=== PATIENT | female | born 1945 ===

== ENCOUNTER 2016-08-10 08:14 | Inpatient (IN) | payer MEDICARE, OTHER ==
[2016-08-10] VITALS (10 sets, daily range): BP systolic 81–132; BP diastolic 49–71; PULSE 97–135; RESP 22–24; O2SAT 93–99
[~2016-08-10] VITALS: Ht 154.9 cm; Wt 79.6 kg
[~2016-08-10 08:14] MED LIST: ANAS1TAB7 PO; ASPI325T32 PO; GABA-500 PO; INSU100I SUBQ; INSU100I13 SUBQ; LISI-567 PO; LOVA20TA PO; METF500T4 PO
--- NOTE | 2016-08-10 08:18 | ED.REPORT ---
HPI-General Illness Date of Service Aug 10, 2016 ED Provider: The patient is a 71 year old female with history of a stroke 5 years ago, diabetes mellitus, acute renal failure, osteopenia, UTIs, breast cancer, GERD, and hypertension, who was brought to the emergency department by EMS for a fever. The patient has had cold-like symptoms over the last few weeks. Today she has noticed abdominal pain, nausea, vomiting, and a fever. She has not been eating and drinking normally over the last few days. She has not had a bowel movement in about 3-4 days. She has not had similar symptoms in the past. She denies dysuria, hematuria, bloody stools or bloody emesis. Nursing Notes Stated Complaint: FEVER Nursing Notes Reviewed: Yes Allergies: Coded Allergies: cyclobenzaprine (Verified Allergy, Unknown, chest pain, hives, 08/10/16) naproxen (Verified Allergy, Unknown, chest pain, hives, 08/10/16) sulfamethoxazole (Verified Allergy, Unknown, nausea, vomiting, 08/10/16) trimethoprim (Verified Allergy, Unknown, nausea, vomiting, 08/10/16) Scheduled Anastrozole (Anastrozole) 1 Mg Tablet 1 MG PO DAILY Aspirin (Aspirin) 325 Mg Tablet.dr 325 MG PO DAILY Gabapentin (Gabapentin) 100 Mg Capsule 300 MG PO BID Insulin Aspart (NovoLOG U-100 Pen) 100 Unit/Ml Insuln.pen 30 UNIT SUBQ DAILY USE ACCORDING TO SLIDING SCALE Insulin Glargine (Lantus U100 Solostar Insulin Pen) 100 Unit/1 Ml Insuln.pen 45 UNIT SUBQ BID use according to insulin protochol Lisinopril (Lisinopril) 20 Mg Tablet 20 MG PO AM Lovastatin (Lovastatin) 20 Mg Tablet 20 MG PO DAILYWD Metformin (Metformin) 500 Mg Tablet 500 MG PO BID General Time Seen by MD: 08:24 Chief Complaint Fever Hx Obtained From: Patient, Spouse, EMS Arrived By: Ambulance Sudden in Onset?: No Onset Occurred: More than a week ago... Symptom Duration: Since onset Severity: Current: Moderate Severity: Maximum: Moderate Recent Healthcare: No recent hospitalization Similar Sx Previous: No Past Medical History Past Medical History Stroke Hypertension Diabetes mellitus Breast cancer Hx of sepsis with acute renal failure Osteopenia GERD Hx of UTIs Past Surgical History Family History Noncontributory Smoking History Unknown if Ever Smoker Social History Other Social History: Good social support, Ambulatory Status Independent Review of Systems Full Review of Systems Constitutional: Reports: Chills, Fever Ears / Nose / Throat: Reports: Nasal congestion Respiratory: Reports: Non-productive cough GI: Reports: Abdominal pain, Anorexia, Constipation, Nausea, Vomiting, Denies: Bloody/tarry stool, Hematemesis, Hematochezia Female: Denies: Dysuria, Hematuria Complete sys rev & neg: except as marked. Physical Exam Vital Signs Vital Signs Date Time Temp Pulse Resp B/P Pulse Ox O2 Delivery O2 Flow Rate FiO2 08/10/16 10:39 109 23 90/49 95 Nasal Cannula 2 08/10/16 09:00 38.8 08/10/16 08:30 39.6 135 24 81/54 97 Room Air Initial VS: Reviewed, Vital signs abnormal Head / Eyes: Atraumatic, Normocephalic, PERRL ENT: Mucous membranes moist, Conjunctiva normal, No scleral icterus Neck: Supple, Non-tender, Full range of motion Lymphatic: No lymphadenopathy Extremities: Vascular intact, Neuro intact, No swelling, No tenderness Skin: Warm, Dry, No cyanosis Neurologic: Alert, Oriented, Nonfocal Psychiatric: Mood/affect normal, Behavior normal, Normal thought content General/Constitutional: Awake, Alert, Cooperative Smells of urine Respiratory / Chest: Atraumatic, Breath sounds NL, No respiratory distress, No rales, No rhonchi, No wheezing Cardiovascular: Regular rhythm, Heart sounds NL, No murmurs, No rubs Heart Rate / Rhythm: Positive: Tachycardia Abdomen: Soft, No guarding, No rebound, BS normoactive, No distention, No hernia, No palpable mass, No pulsatile mass Lower abdominal tenderness Interpretation & Diagnostics Lab Results Interpretation Result Diagram: 08/10/16 0825 08/10/16 0825 Test 08/10/16 08:25 08/10/16 10:10 08/10/16 11:00 White Blood Count 2.5th/mm3 (3.8-10.1) Red Blood Count 4.34mil/mm3 (3.90-5.20) Hemoglobin 12.7g/dL (12.0-15.6) Hematocrit 38.4% (35.0-46.0) Mean Corpuscular Volume 88.5fL (81-100) Mean Corpuscular Hemoglobin 29.3pg (27.0-35.0) Mean Corpuscular Hemoglobin Concent 33.1% (32.0-37.0) Red Cell Distribution Width 13.1% (12.3-15.4) Platelet Count 269bil/L (150-400) Neutrophils (%) (Auto) 86.8% (40-74) Lymphocytes (%) (Auto) 11.6% (14-46) Monocytes (%) (Auto) 0.8% (4-12) Eosinophils (%) (Auto) 0.8% (0-5) Basophils (%) (Auto) 0% (0-3) Sodium Level 133mEq/L (134-144) Potassium Level 4.2mEq/L (3.5-5.2) Chloride Level 94mEq/L (97-108) Carbon Dioxide Level 19mmol/L (18-29) Blood Urea Nitrogen 22mg/dL (8-27) Creatinine 1.51mg/dL (0.57-1.00) Estimat Glomerular Filtration Rate 49mL/min (>59) Glucose Level 107mg/dL (60-99) Calcium Level 8.9mg/dL (8.5-10.1) Magnesium Level 1.4mg/dL (1.6-2.6) Total Bilirubin 1.4mg/dL (0.0-1.2) Aspartate Amino Transf (AST/SGOT) 23U/L (0-50) Alanine Aminotransferase (ALT/SGPT) 24U/L (0-32) Alkaline Phosphatase 106U/L (25-165) Troponin T < 0.010ug/L (0.0-0.011) Total Protein 7.7g/dL (6.4-8.4) Albumin 3.7g/dL (3.4-5.0) Lipase 22U/L (13-60) Procalcitonin 0.70ng/mL (0.00-0.08) Urine Color Straw (YELLOW) Urine Appearance Hazy (CLEAR,HAZY) Urine pH 5.5 (5.0-8.0) Urine Specific [place] 1.010 (1.003-1.035) Urine Protein Tracemg/dL (NEG,TRACE) Urine Glucose (UA) Negativemg/dL (NEGATIVE) Urine Ketones Negativemg/dL (NEGATIVE) Urine Occult Blood Small (NEGATIVE) Urine Nitrite Negative (NEGATIVE) Urine Bilirubin Negative (NEGATIVE) Urine Urobilinogen Normalmg/dL (NORMAL) Urine Leukocyte Esterase Moderate (NEGATIVE) Urine RBC 0-2/hpf (0-2) Urine WBC >50/hpf (0-5) Urine Epithelial Cells Few/hpf (NONE-MOD) Urine Crystals None seen (NONE SEEN) Urine Bacteria Moderate/hpf (NONE-FEW) Urine Hyaline Casts None/lpf (NONE) Urine Granular Casts None seen (NONE SEEN) Urine Waxy Casts None seen (NONE SEEN) Urine Red Blood Cell Casts None seen (NONE SEEN) Urine White Blood Cell Casts None seen (NONE SEEN) Urine Mucus None seen (None Seen) Urine Trichomonas None seen (NONE SEEN) Urine Yeast None (NONE SEEN) Urinalysis Comment None Urine Culture Reflexed Indicated Lactic Acid Level 1.3mmol/L (0.4-2.0) ECG Interpretation ECG Interpretation: Sinus tachycardia with a rate of 117 Time: 08:42 Interpreted by: ED physician X-Ray Chest Interpretation Chest Xray Interpretation: IMPRESSION: No acute cardiopulmonary disease process. Dictated by: Jillian Farmer MD, PhD on 08/10/2016 at 8:56 Interpretation / Wet Read by: Interpret - Radiologist CT Abd / Pelvis Interpretation IMPRESSION: 1. Findings suggestive of urinary tract infection, as evidenced by bilateral perinephric fat stranding, mild hydronephrosis and ureteral dilatation. Recommend correlation with urinalysis. 2. Appendix not seen. No evidence of appendicitis. Dictated by: En Maza M.D. on 08/10/2016 at 10: Interpretation / Wet Read by: Interpret - Radiologist Re-Eval/Medical Decision Med Decision/Clinical Course Ultimately, this is urosepsis, with septic shock, hypotension despite a greater than 30 mL/kg fluid bolus. IV norepinephrine is initiated. IV Zosyn given for urinary source of sepsis. Source of Hx: Old records, EMS, Family Time of Eval: 09:00 Re-Evaluation/Progress Note: Blood pressure is 105 systolic. Time of Eval: 09:37 Re-Evaluation/Progress Note: The patient is starting to feel better. Discussed plan for admission with the patient and family members. They understand and agree with plan. Time of Eval: 10:25 Re-Evaluation/Progress Note: Discussed CT results and plan for additional IV fluid. Consultation : Referral / Consult Name: Brando Rodriguez MD Consulted With: Hospitalist Requested Call at: 10:19 Call Returned at: 10:33 Household Cook: Will see patient, Agrees with eval, Agrees with plan, Accepts admit Counseled Regarding: Diagnosis, Lab results, Need for admission Discharge & Departure Primary Impression: Sepsis Sepsis type: sepsis due to unspecified organism Qualified Code: A41.9 - Sepsis, unspecified organism Additional Impressions: UTI (urinary tract infection) Urinary tract infection type: site unspecified Hematuria presence: without hematuria Qualified Code: N39.0 - Urinary tract infection, site not specified Shock Disposition: ADMITTED TO HOSPITAL Discharge Condition All VS Reviewed: Yes Condition: Stable Referrals: Larisa Arrieta MD (PCP) Crit Care Except Billable Proc Time Spent: 30-74 minutes Services Performed: Patient management by me, Time spent at bedside, Reviewing test results, Reviewing imaging, Discussing patient care, Documentation in record, Time with fam/surrogate Critical Care Notes: See MDM, IV vasopressors, septic shock Scribe Attestation Portions of this note were transcribed by Denise Ramirez. I, Dr. Hickey personally performed the history, physical exam and medical decision-making; I reviewed and confirmed the accuracy of the information in the transcribed note. Signed by: Natividad Weber, 08/10/2016 and 1040. copies to: Larisa Arrieta MD, Timothy S DO Aug 10, 2016 08:17 Denise Ramirez Aug 10, 2016 08:31
[2016-08-10] MEDS ORDERED: 0.9% Sodium Chloride 1,000 ML IV ONE (08:27)
[2016-08-10 08:38] LABS: BASOPHILS % (AUTO) 0 % (0-3); EOSINOPHILS % (AUTO) 0.8 % (0-5); MONOCYTES % (AUTO) 0.8 % (4-12); Mean Corpuscular Hemoglobin 29.3 pg (27.0-35.0); Mean Corpuscular Volume 88.5 fL (81-100); NEUTROPHILS % (AUTO) 86.8 % (40-74); Platelet Count 269 bil/L (150-400)
[2016-08-10] MEDS: 0.9% Sodium Chloride 1,000 ML IV SCH ×4 (08:45→11:28)
--- NOTE | 2016-08-10 08:59 | DRSVH ---
PROCEDURE: X-RAY CHEST ONE VIEW, PORTABLE ([id number]) INDICATIONS: fever, vomiting, recent URI TECHNIQUE: One view of the chest was acquired. COMPARISON: [facility], , CHEST 1VW (PORTABLE), 04/14/2010, 5:48. FINDINGS: Surgical changes and devices: None. Lungs and pleura: No pleural effusions or pneumothorax. Lungs are clear. Mediastinum: Mediastinal contours appear normal. Heart size is normal. Bones and chest wall: No suspicious bony lesions. Overlying soft tissues appear unremarkable. IMPRESSION: No acute cardiopulmonary disease process. Dictated by: Jillian Farmer MD, PhD on 08/10/2016 at 8:56 Approved by: Jillian Farmer MD, PhD on 08/10/2016 at 8:57
[2016-08-10] MEDS: Ondansetron 2 mg/mL 2 mL Inj IVPUSH PRN ×2 (09:09→23:04)
[2016-08-10 09:10] LABS: Lipase 22 U/L (13-60); Magnesium 1.4 mg/dL (1.6-2.6)
[2016-08-10 09:13] LABS: TROPONIN T < 0.010 ug/L (0.0-0.011)
[2016-08-10] MEDS ORDERED: Magnesium Sulf 2 Gm/50mL Water 2 GM in IV Premix 1 EACH IV ONE (09:20)
[2016-08-10] MEDS: fentaNYL-PF 50 mCg/mL 2 mL Inj IVPUSH PRN ×3 (09:54→13:14)
--- NOTE | 2016-08-10 10:12 | DRSVH ---
PROCEDURE: CT ABDOMEN AND PELVIS WITH CONTRAST ([id number]) INDICATIONS: abd pain, fever, sepsis TECHNIQUE: After the administration of intravenous contrast, 5 mm thick sections acquired from the diaphragm to the symphysis. 5 mm coronal and sagittal reformats were acquired. For radiation dose reduction, the following was used: automated exposure control, adjustment of mA and/or kV according to patient siz e. COMPARISON: None. FINDINGS: Image quality: Excellent. ABDOMEN: Lung bases: Lung bases are clear. Heart size is normal. Solid organs: Liver and spleen are normal in size and enhancement. Gallbladder is within normal bearden its. Biliary system is non dilated. Pancreas enhances normally. No adrenal nodules. Kidneys demon strate normal size and enhancement. There is mild perinephric fat stranding on the right, and moderat e stranding on the left. There is mild bilateral hydronephrosis and bilateral ureteral dilatation. Peritoneum and bowel: Bowel loops demonstrate normal wall thickness and caliber. No free fluid or a ir. Appendix is not seen. No evidence of appendicitis. Nodes and vessels: No retroperitoneal or mesenteric adenopathy by size criteria. Aorta and inferior vena cava are normal in size. Miscellaneous: No ventral hernias. PELVIS: Genitourinary: Bladder wall thickness is normal. There is a 14 mm diameter calcific focus within th e right posterior uterine fundus, suggestive of a fibroid. Miscellaneous: No inguinal hernias or adenopathy. Bones: No suspicious bony lesions. No vertebral body compression fractures. IMPRESSION: 1. Findings suggestive of urinary tract infection, as evidenced by bilateral perinephric fat strandin g, mild hydronephrosis and ureteral dilatation. Recommend correlation with urinalysis. 2. Appendix not seen. No evidence of appendicitis. Dictated by: En Maza M.D. on 08/10/2016 at 10:07 Approved by: En Maza M.D. on 08/10/2016 at 10:10
[2016-08-10] MEDS ORDERED: Piperacillin-Tazo 3.375 Gm Inj 3.375 GM in Dextrose 5% Minibag Plus 50 ML IV ONE (10:15)
[2016-08-10 10:20] LABS: APPEARANCE,URINE HAZY (CLEAR,HAZY); COLOR,URINE STRAW (YELLOW); OCCULT BLOOD,URINE SMALL (NEGATIVE); PH,URINE 5.5 (5.0-8.0); UROBILINOGEN,URINE NORMAL (NORMAL)
[2016-08-10] MEDS ORDERED: 0.9% Sodium Chloride 1,000 ML IV SCH ×3 (10:30→13:32)
[2016-08-10] MEDS ORDERED: Sodium Chloride LOK Flush 10 mL Syringe IVFLUSH PRN ×2 (10:30)
[2016-08-10] MEDS ORDERED: Norepineph 8,000 mCg/250 mL NS 8,000 MCG in IV Premix 1 EACH IV SCH (10:35)
[2016-08-10] MEDS ORDERED: Alum-Mag Hydrox-Simeth 30 mL Suspension PO PRN (12:30)
--- NOTE | 2016-08-10 12:37 | DRSVH ---
PROCEDURE: X-RAY PICC LINE PLACEMENT BY NURSE ([id number]) INDICATIONS: shock COMPARISON: None. FINDINGS: FINDINGS: PICC was placed by the intravenous therapy team from the left side. Fluoroscop ic spot film demonstrates tip projected over the cavoatrial junction. IMPRESSION: Tip of PICC projected over the cavoatrial junction. Dictated by: Mariano MCNEAL Interpreted: Souleymane Irby MD on 08/10/2016 at 12:35 Transcribed by: PASCUAL on 08/10/2016 at 12:36 Approved by: Souleymane Irby M.D. on 08/10/2016 at 14:52
[2016-08-10] MEDS ORDERED: Norepineph 8,000 mCg/250 mL NS 8,000 MCG in IV Premix 1 EACH IV PRN (13:32)
[2016-08-10] MEDS ORDERED: Lactated Ringer's 1,000 ML IV PRN (13:32)
--- NOTE | 2016-08-10 13:46 | PCM.HPMED ---
Subjective Date of Service Aug 10, 2016 Primary Provider: Admitting Physician: Brando Rodriguez MD Primary Care Physician: Larisa Arrieta MD Attending Physician: Brando Rodriguez MD Admit Status: From the Emergency Department, Full Admit, Admit to Yellow Team, Critical Care Chief Complaint: Fevers chills or weakness History of Present Illness: This is a 71-year-old female with history of diabetes mellitus 2 and recurrent UTI. She presents having been ill for 5 days with polyuria and increased thirst and generalized progressive weakness. She has not had a bowel movement for 5 days. Her urine has been a little bit uncomfortable while urinating and more urgent. No flank pain. This morning she became more weak and had fevers and chills. She is brought to the ER and found to be profoundly hypotensive and initially did respond to about 3 L of saline but then had recurrent hypotension consistent with moderate to severe sepsis. She was given 6 L of crystalloid in the ED and started on norepinephrine. A PICC was placed. She denies nausea vomiting or chest pain. No recent diarrhea or blood per rectum. She does have some suprapubic tenderness. Review of Systems: No recent hearing loss visual changes rhinorrhea sore throat or cough. No dyspnea at rest or with exertion orthopnea or pedal edema. No skin rash or lesions. She denies any vomiting. Also reviewed and otherwise negative except as noted in history of present illness Allergies Coded Allergies: cyclobenzaprine (Verified Allergy, Unknown, chest pain, hives, 08/10/16) naproxen (Verified Allergy, Unknown, chest pain, hives, 08/10/16) sulfamethoxazole (Verified Allergy, Unknown, nausea, vomiting, 08/10/16) trimethoprim (Verified Allergy, Unknown, nausea, vomiting, 08/10/16) Home Medications Anastrozole (Anastrozole) 1 Mg Tablet 1 MG PO DAILY Aspirin (Aspirin) 325 Mg Tablet.dr 325 MG PO DAILY Gabapentin (Gabapentin) 100 Mg Capsule 300 MG PO BID Insulin Aspart (NovoLOG U-100 Pen) 100 Unit/Ml Insuln.pen 30 UNIT SUBQ DAILY USE ACCORDING TO SLIDING SCALE Insulin Glargine (Lantus U100 Solostar Insulin Pen) 100 Unit/1 Ml Insuln.pen 45 UNIT SUBQ BID use according to insulin protochol Lisinopril (Lisinopril) 20 Mg Tablet 20 MG PO AM Lovastatin (Lovastatin) 20 Mg Tablet 20 MG PO DAILYWD Metformin (Metformin) 500 Mg Tablet 500 MG PO BID PMH 1. Diabetes mellitus 2, insulin-dependent 2. History of remote CVA 3. Essential hypertension 4. Breast cancer with history of lumpectomy and chemotherapy 5. Recurrent urinary tract infection 6. GERD Surgical History Lumpectomy for breast cancer risk section Family History Positive for diabetes Social History Occupation: none Hx Alcohol Use: No Hx Substance Use: No Hx Tobacco Use: Yes (stopped 25 years ago) Smoking Status: Unknown if Ever Smoker Living Arrangement: with Family Exam Vital Signs Vital Sign - Last Date Time Temp Pulse Resp B/P Pulse Ox O2 Delivery O2 Flow Rate FiO2 08/10/16 12:50 109 23 96/54 94 Nasal Cannula 2 08/10/16 09:00 38.8 Exam Alert oriented 3, no distress. In speech. No facial droop. Normal skull. Normal nose and ears. An exquisite icteric sclerae, symmetric pupils Oropharynx dry mucosa normal tongue. Neck supple, normal thyroid. No adenopathy are clear, normal effort and rate. Heart is regular without murmur gallop or rub Abdomen is soft nondistended organomegaly no focal tenderness. Extremities are free of edema. Pedal and radial pulses Muscles is normal tone. Joints not swollen or deformed. Skin free of rash, lesions or ecchymosis. She has grossly normal cranial nerves. Affect is normal. Lab and Diagnostics Labs Urine dip is positive for leukocytes and bacteria Result Diagram: 08/10/1625 08/10/16 0825 X-Rays, CTs and MRIs Chest x-ray is unremarkable CT of abdomen reveals bilateral devin-renal fact stranding consistent with probable pyelonephritis. Mild bilateral hydronephrosis. Assessment & Plan 1. Septic shock. POA. Patient is admitted on the sepsis order set. We will trend her lactic acid, continue empiric IV antibiotics with Zosyn for pyelonephritis as expected source. Blood cultures drawn and pending. She is started on norepinephrine will continue titrated titrate this to a map of over 65. 2. Pyelonephritis, POA. Measures as outlined above, specifically Zosyn. 3. DM 2. We will continue her Lantus at a slightly reduced dose of 30 every 12 hours. 4. Essential hypertension, POA. We will hold antihypertensives that she is currently in shock 5. AK I, POA. Fluid resuscitation and follow renal indices Patient is a full resuscitation this is confirmed today. Her estimated length of stay is over tonight she is inpatient status. Pain Evaluation: Adequate Pain Control Resuscitation Status: CPR: Attempt Resuscitation Time spent 45 minutes Brando Rodriguez MD Aug 10, 2016 13:46
[2016-08-10] MEDS ORDERED: Glucose 40% Oral Gel 15 Gm Tube PO PRN (13:50)
[2016-08-10 13:58] LABS: Phosphorus 3.5 mg/dL (2.5-4.9)
[2016-08-10] MEDS: Lactated Ringer's 1,000 ML IV SCH ×2 (14:10→20:12)
--- NOTE | 2016-08-10 15:52 | ABG ---
DateTimeAnalyzed 15:47:00 -_ pH ____7.329 - 7.350 7.450 pCO2 ___30.5__ -mmHg 35.0 45.0 pO2 ___43.8__ -mmHg 69.0 116 HCO3- ___15.6__ -mmol/L ABE ___-9.0__ -mmol/L tHb ____9.1__ -g/dL O2Hb ___76.7__ -% COHb ____1.0__ -% MetHb ____1.1__ -% sO2 ___78.3__ -% FIO2 ___28.0__ -% Drawn By NB - Date/Time Notified____ 15:51:00 -_ Liter_Flow ____3.0__ -L/min Oxygen Device 1 __CANNULA - Notified By NB - Notified Whom _Sara, RN - Age 64 -years B 764 -mmHg tO2 ____9.8__ -Vol% Brando test N/A -
[2016-08-10] MEDS: Heparin 5,000 Unit/mL Inj SUBQ SCH (16:30)
[2016-08-10] MEDS: Piperacillin-Tazo 3.375 Gm Inj 3.375 GM in Dextrose 5% Minibag Plus 50 ML IV SCH (16:30)
--- NOTE | 2016-08-10 16:44 | DRSVH ---
[facility] [address] [place] [address] Echocardiogram Report Name: KOFFI NEWMAN Study Date: 08/10/2016 Height: 61 in Hospital Exam Location: [facility] Weight: 175 lb Gender: Female BSA: 1.8 m2 : 1945 Age: 71 yrs BP: 123/65 mmHg Reason For Study: SEPSIS, EVAL RV/LV FX, VALVES, CHAMBERS Ordering Physician: HOSPITALIST SASHAerformed By: Everett Keller Referring Physician: ETHAN FAN Interpretation Summary The left ventricle is normal in size, wall thickness, and systolic function without any focal wall motion abnormalities. The ejection fraction is estimated to be 60-65%. Assessment of diastolic parameters indicates a relaxation abnormality of the left ventricle, consistent with normal filling pressures. The right ventricle is normal in size, thickness and function. The right ventricular systolic pressure is estimated at 48 mmHg assuming a right atrial pressure of 15 mm Hg. The left atrial size is normal. Right atrial size is normal. There is no significant valvular heart disease. There are no obvious findings that would suggest endocarditis. If highly suspicious for endocarditis then consider TOM. The aortic root is normal size. Procedure: A two-dimensional transthoracic echocardiogram with color flow and Doppler was performed. The study quality was technically adequate. There is no prior echocardiogram noted for this patient. The patient was in sinus tachycardia with heart rates between 107-111 bpm during the exam. Left Ventricle: The left ventricle is normal in size, wall thickness, and systolic function without any focal wall motion abnormalities. The ejection fraction is estimated to be 60-65%. Assessment of diastolic parameters indicates a relaxation abnormality of the left ventricle, consistent with normal filling pressures. Right Ventricle: The right ventricle is normal in size, thickness and function. Atria: The left atrial size is normal. Right atrial size is normal. The interatrial septum is intact with no evidence for an atrial septal defect. Mitral Valve: The mitral valve is normal. There is trace mitral regurgitation. Aortic Valve: The aortic valve is trileaflet. The aortic valve is slightly calcified. No aortic regurgitation is present. Tricuspid Valve: The tricuspid valve is normal. There is mild tricuspid regurgitation. The right ventricular systolic pressure is estimated at 48 mmHg assuming a right atrial pressure of 15 mm Hg. Pulmonic Valve: The pulmonic valve is not well seen, but is grossly normal. There is a trace or physiologic amount of pulmonic regurgitation. There is no significant valvular heart disease. Great Vessels: The aortic root is normal size. The dimensions of the ascending aorta are normal. The pulmonary artery is normal size. The IVC is dilated (diameter is greater than 2.1 cm) and it collapses less than 50% with a sniff. This suggests a high right atrial pressure of 15 mm Hg. Pericardium/ Pleura There is no pericardial effusion. There is no pleural effusion. MMode/2D Measurements & Calculations LVIDd: 4.4 cm RA long axis LVOT diam: 1.8 cm LVIDs: 3.1 cm LA A2 area: 14.4 cm AoV Opening FS: 28.8 % LA A4 area: 20.4 cm RA area EPSS: 0.33 cm LA length (vol) Ao root diam IVSd: 0.87 cm : 14.1 cm LVPWd: 0.80 cm LA vol: 48.0 ml RA vol asc Aorta Diam LA vol index : 32.5 ml RA Ao Arch Diam (Prox : 18.2 mm2 Trans): 2.1 cm IVC diam: 2.4 cm LV okeefe. diameter/BSA LV sys. diameter/BSA TAPSE: 1.9 cm (cm/m^2): 2.4 (cm/m^2): 1.7 Doppler Measurements & Calculations Ao V2 max MV E max evan MV E/A: 0.99 TR max evan : 147.4 cm/sec : 109.3 cm/sec Med Peak E' Evan : 285.8 cm/sec Ao max P.7 mmHg MV A max evan TR max PG Ao mean P.2 mmHg : 110.3 cm/sec E/E' med: 14.4 : 32.7 mmHg LVOT Max Evan Lat Peak E' Evan PA V2 max : 103.6 cm/sec : 99.1 cm/sec E/E' lat: 15.5 PA mean PG LUC(I,D): 2.0 cm E/e' average : 2.1 mmHg sev ratio: 0.78 MV dec time: 0.21 sec Ao V2 mean LV V1 max PG PA V2 mean : 109.6 cm/sec : 68.7 cm/sec Ao V2 VTI: 25.8 cmLV V1 VTI PA pr(Accel) : 20.1 cm : 38.5 mmHg LUC(V,D): 1.8 cm2 LUC indexed to BSA (cm^2/m^2): 1.1 Reading Physician:PM
[2016-08-10] MEDS: Insulin LISPRO 300 Unit/3 mL Inj SUBQ SCH ×2 (17:30→22:00)
--- NOTE | 2016-08-10 19:15 | NUR ---
Admit note Pt arrived in CCU at 1305 from ED. A&O x3, on norepi and NS at 200ml. MD at bedside assessing pt and putting in orders. Pt on 3L NC sats in 90s, HR ST, afebrile. Family at bedside. Pt c/o 8/10 abd pain, good relief with 2mg IV morphine. Frequent rounding, ice chips continue.
[2016-08-10] MEDS: Famotidine Inj 20 MG in IV Premix 1 EACH IV SCH (20:13)
[2016-08-10] MEDS: Insulin GLARgine 100 Unit/mL Syringe SUBQ SCH (22:00)
[2016-08-11] VITALS (7 sets, daily range): BP systolic 108–122; BP diastolic 52–58; PULSE 70–86; RESP 16–20; O2SAT 99–100
[2016-08-11] MEDS: Piperacillin-Tazo 3.375 Gm Inj 3.375 GM in Dextrose 5% Minibag Plus 50 ML IV SCH ×3 (00:42→16:53)
[2016-08-11] MEDS: Heparin 5,000 Unit/mL Inj SUBQ SCH ×3 (00:43→16:53)
[2016-08-11 04:25] LABS: BASOPHILS % (AUTO) 0.1 % (0-3); EOSINOPHILS % (AUTO) 0.3 % (0-5); MONOCYTES % (AUTO) 3.8 % (4-12); Mean Corpuscular Hemoglobin 29.5 pg (27.0-35.0); Mean Corpuscular Volume 89.4 fL (81-100); NEUTROPHILS % (AUTO) 89.1 % (40-74); Platelet Count 231 bil/L (150-400)
[2016-08-11 04:42] LABS: INR 1.16 ratio
[2016-08-11 05:07] LABS: Phosphorus 2.6 mg/dL (2.5-4.9)
[2016-08-11] MEDS: Lactated Ringer's 1,000 ML IV SCH ×4 (06:26→20:41)
[2016-08-11] MEDS: Ondansetron 2 mg/mL 2 mL Inj IVPUSH PRN ×3 (07:55→21:41)
[2016-08-11] MEDS: Famotidine Inj 20 MG in IV Premix 1 EACH IV SCH ×2 (07:55→20:58)
--- NOTE | 2016-08-11 07:59 | NUR ---
Pt A&O X 3 pleasant lady. Frequent complaints of pain in abd and occasional headache. Treated with morphine and tylenol with good resolve. Able to titrate down norepi from .08 down to .04 and BP remains stable. Family at bedside and other VSS. Good urine output and will continue to support and monitor.
[2016-08-11] MEDS: Insulin LISPRO 300 Unit/3 mL Inj SUBQ SCH ×4 (08:00→20:40)
[2016-08-11] MEDS: Insulin GLARgine 100 Unit/mL Syringe SUBQ SCH ×2 (08:00→22:00)
--- NOTE | 2016-08-11 14:22 | PCM.PNMED ---
Subjective Date of Service Aug 11, 2016 Subjective She is doing better today. She still feels somewhat thirsty. Some nausea. She denies any chest pain or abdominal pain. Other than some suprapubic tenderness. She denies any diarrhea. No cough or rhinorrhea. Exam Vital Signs Vital Sign - Last Date Time Temp Pulse Resp B/P Pulse Ox O2 Delivery O2 Flow Rate FiO2 08/11/16 12:30 37.5 73 16 108/58 99 Nasal Cannula 3.00 Intake and Output 08/10/16 08/10/16 08/11/16 Cumulative From/Thru 15:00 23:00 07:00 08/10/16 08:30 - 08/10/16 19:20 Intake Total 5000 ml 1099 ml 6099 ml Output Total 825 ml 1900 ml 2725 ml Balance 4175 ml -801 ml 3374 ml Intake IV Total 5000 ml 1099 ml 6099 ml Output Urine Total 825 ml 1900 ml 2725 ml Exam Alert and oriented 3, no distress. Speech Anicteric sclera Neck supple. Lungs are clear with normal rate and effort. Heart is regular without murmur gallop or rub. Soft Nondistended Extremities Are Free of Edema Good Pedal and Radial Pulses. IVs and Medications Medications Reviewed: Medications were reviewed in detail Lab and Diagnostics Result Diagram: 08/11/16 0400 08/11/16 0400 X-Rays, CTs and MRIs Chest x-ray is unremarkable CT of abdomen reveals bilateral devin-renal fact stranding consistent with probable pyelonephritis. Mild bilateral hydronephrosis. Assessment & Plan 1. Septic shock. POA. She is improving. She was extensively fluid resuscitated and is now weaning off the norepinephrine drip. Lactic acid did normalize. 2. Pyelonephritis, POA. Cultures are still pending and urine and blood. She is clinically improving on Zosyn. ID did point out that he has BL cane occasionally present with a more acute septic picture and refractory response to typical measures although she does seem to be improving. We will continue Zosyn and await cultures. 3. DM 2. We will continue her Lantus at a slightly reduced dose of 30 every 12 hours. 4. Essential hypertension, POA. We will hold antihypertensives that she is currently in shock 5. AK I, POA. Fluid resuscitation and follow renal indices, this is improving. Patient is a full resuscitation this is confirmed today. Her estimated length of stay is over tonight she is inpatient status. Pain Evaluation: Adequate Pain Control VTE Mechanical Devices: Intermittant Pneumatic CD Resuscitation Status: CPR: Attempt Resuscitation Time spent 30 minutes Brando Rodriguez MD Aug 11, 2016 14:22
--- NOTE | 2016-08-11 14:48 | NUR ---
NUTRITION ASSESSMENT Assess: 71 yo F w/ sepsis, UTI, pyelonephritis. Pt w/ out BM x5 days prior to admission. PMHx: DM 2, CVA, Breast cancer w/ lumpectomy, GERD, UTI LABS: Reviewed. Cr 1.01, Glu 133, Ca 7.1, Albumin 2.8 MEDICATIONS: Reviewed. Insulin, Zofran DIET: Consistent Carbohydrate GI symptoms/stool: No BM x5 days [employer] Skin integrity: No issues reported; Harvinder: 15 ANTHROPOMETRICS: Current Wt: 79.5 kg BMI: 33.1 kg/p0Hfelu Wt: 79.5 kg IBW: 47.7 kg Recent wt changes: Wt stable ESTIMATED NEEDS: Calories: 5613-0153 kcal/d (25-30 kcal/kg/d) Protein: 80-95 g/d (1-1.2 g/kg/d) Fluids: 7669-0468 ml/d (25-30 kcal/kg/d) NUTRITION DIAGNOSIS: 1) No nutrition diagnoses at this time INTERVENTION: 1) No intervention at this time MONITOR/EVALUATE: PO intake, Labs, Wt, GI, Nutrition status, POC. Will follow per moderate nutrition risk guidelines.
--- NOTE | 2016-08-11 17:44 | NUR ---
N/V&SAMANIEGO Pt transferred out of CCU to PCU room 2011. Alert and oriented x3. C/O headache with nausea and small amounts of bile emesis. Notified . 2mg Morphine IV given for SAMANIEGO and ABD pain. 4mg Zofran given for n/v. New order for Reglan if needed. x2 soft brown stool in bedpan. Flor draining elmo urine, 800cc output. Tolerating only ice chips. LR at 150cc/hr in left upper PICC.
[2016-08-11] MEDS: MetoCLOpramide 5 mg/mL 2 mL Inj IVPUSH PRN (18:20)
--- NOTE | 2016-08-11 23:05 | NUR ---
N/V Pt received dose of Reglan during end of day shift. At 2100, pt denied N/V. At 2200, put stated she was nauseas, dry heaving, and spitting up saliva. Pt given 8mg of Zofran IV. Pt has had about 50ml of sorbet and ice chips throughout day shift. Continue to monitor.
[2016-08-12] VITALS (9 sets, daily range): BP systolic 109–149; BP diastolic 53–78; PULSE 54–72; RESP 19–22; O2SAT 94–99
[2016-08-12] MEDS: Piperacillin-Tazo 3.375 Gm Inj 3.375 GM in Dextrose 5% Minibag Plus 50 ML IV SCH ×2 (01:03→10:49)
[2016-08-12] MEDS: Heparin 5,000 Unit/mL Inj SUBQ SCH ×3 (01:05→15:32)
[2016-08-12] MEDS: MetoCLOpramide 5 mg/mL 2 mL Inj IVPUSH PRN (04:57)
[2016-08-12] MEDS: Lactated Ringer's 1,000 ML IV SCH ×2 (05:32→10:48)
[2016-08-12] MEDS: Insulin LISPRO 300 Unit/3 mL Inj SUBQ SCH ×4 (08:00→21:04)
[2016-08-12] MEDS: Insulin GLARgine 100 Unit/mL Syringe SUBQ SCH ×3 (08:00→21:05)
--- NOTE | 2016-08-12 08:56 | PCM.PNMED ---
Subjective Date of Service Aug 12, 2016 Subjective She is feeling a little bit better today. She was nauseated last night. No nausea this morning no abdominal or flank pain. Minimal suprapubic pain. No chest pain or dyspnea. No diarrhea. Exam Vital Signs Vital Sign - Last Date Time Temp Pulse Resp B/P Pulse Ox O2 Delivery O2 Flow Rate FiO2 08/12/16 04:45 36.8 69 21 125/53 99 Nasal Cannula 2.00 Intake and Output 08/11/16 08/11/16 08/12/16 Cumulative From/Thru 15:00 23:00 07:00 08/10/16 08:30 - 08/12/16 06:47 Intake Total 2900 ml 100 ml 9099 ml Output Total 1200 ml 825 ml 4750 ml Balance 1700 ml -725 ml 4349 ml Intake Oral 100 ml 100 ml IV Total 2900 ml 8999 ml Output Urine Total 1200 ml 825 ml 4750 ml Exam They are oriented 3, fluent speech. Anicteric sclera Lungs are clear, normal effort. Heart is regular without murmur gallop or rub Abdomen is soft Extremities are free of edema good pedal pulses IVs and Medications Medications Reviewed: Medications were reviewed in detail Lab and Diagnostics Result Diagram: 08/11/16 0400 08/11/16 0400 X-Rays, CTs and MRIs Chest x-ray is unremarkable CT of abdomen reveals bilateral devin-renal fact stranding consistent with probable pyelonephritis. Mild bilateral hydronephrosis. Assessment & Plan 1. Septic shock. POA. Resolved. She is now off of norepinephrine. She is on saline at 100. 2. Pyelonephritis, POA. Cultures are negative, urine culture 100,000 CFU's GNR. Continue current antibiotics. 3. DM 2. We will continue her Lantus at a slightly reduced dose of 30 every 12 hours. 4. Essential hypertension, POA. We will resume blood pressure medications today if needed. 5. AK I, POA. Resolved. Patient is a full resuscitation this is confirmed today. Her estimated length of stay is over tonight she is inpatient status. We will see if she could not even walk today. We will decide in one to discharge her. Pain Evaluation: Adequate Pain Control VTE Mechanical Devices: Intermittant Pneumatic CD Resuscitation Status: CPR: Attempt Resuscitation Time spent 30 minutes Brando Rodriguez MD Aug 12, 2016 08:56
[2016-08-12] MEDS: Famotidine Inj 20 MG in IV Premix 1 EACH IV SCH ×2 (10:48→21:01)
[2016-08-12 11:11] LABS: Mean Corpuscular Hemoglobin 28.8 pg (27.0-35.0); Mean Corpuscular Volume 87.8 fL (81-100)
--- NOTE | 2016-08-12 13:33 | NUR ---
Social Work: Initial Assessment D: Per EMR review, pt is a 71 year old female admitted for sepsis, UTI. Pt is Medicare with Health Supplement; pt has no LTC insurance or VA benefits. PCP Is Dang Arrieta MD. NOK Is Brian Alva Jr. Spouse, . Advanced directives information provided by [employer]. Readmit score is low, 2/8. KIT PL[employer]NER met with pt at bedside. Sw role explained. See initial assessment. Pt lives at home with her spouse. She is I at baseline, continues to drive and uses no DME. Pt has never had HH or skilled rehab placements. Pt anticipates discharge back home with her family to transport. Family is very supportive. Pt discussed in am rounds. anticipates pt to discharge home with no needs pending safe demonstration of ambulation. Also advancing diet today. Anticipate discharge home on Monday. A: Pt who is I at baseline. P: Anticipate pt to discharge home via POV pending safe demonstration of ambulation with RN and PT today; [employer] to continue to follow to assess for needs. ANA Molina
--- NOTE | 2016-08-12 15:20 | NUR ---
Activity/food intake Patient was motivated to get up and increase her activity level- consulted with MD will order PT evaluation because of recent weakness and past history of CVA. Patient was helped to a sitting position at the bedside for meals and tolerated the activity well. MD discontinued IV fluids- patient was encouraged to take PO liquids. Patients eat about 10% of her lunch and stated that the food did not taste good to her. Family was present in the room ad was asked to bring soft food from home that the patient would prefer to eat within patients caloric count restrictions. Patient and the family members verbalized understanding of dietary restrictions.
[2016-08-12] MEDS: cefTRIAXone Inj 2,000 MG in Dextrose 5% Minibag Plus 50 ML IV SCH (15:32)
--- NOTE | 2016-08-12 17:50 | NUR ---
O2 off O2 per nasal canula was discontinued today at 1600 as discussed during PCC rounds- oxygen saturation remained 94-96%. Patient denied having any shortness of breath while resting or with turning. O2 remained off- continue assessment.
--- NOTE | 2016-08-12 23:58 | NUR ---
Desaturation Pt on RA at 96% without movement. During a bed bath, pt's SP02 dropped to 68. Pt given 3L of oxygen via nasal canula. Saturations increased to 98%. Pt asymptomatic.
[2016-08-13] MEDS: Heparin 5,000 Unit/mL Inj SUBQ SCH ×2 (01:51→08:33)
[2016-08-13 04:33] VITALS: BP 138/63; PULSE 62; RESP 18; O2SAT 98
[2016-08-13 05:36] VITALS: PULSE 62
[2016-08-13] MEDS: Insulin LISPRO 300 Unit/3 mL Inj SUBQ SCH (08:00)
[2016-08-13 08:16] VITALS: BP 156/74; PULSE 60; RESP 20; O2SAT 94
[2016-08-13] MEDS: Famotidine Inj 20 MG in IV Premix 1 EACH IV SCH (08:25)
[2016-08-13] MEDS: Insulin GLARgine 100 Unit/mL Syringe SUBQ SCH (08:31)
[2016-08-13 10:12] VITALS: PULSE 60
[2016-08-13] MEDS: cefTRIAXone Inj 2,000 MG in Dextrose 5% Minibag Plus 50 ML IV SCH (10:57)
[2016-08-13] MEDS ORDERED: CIPR-231 PO (11:12)
--- NOTE | 2016-08-13 11:14 | PCM.DIMED ---
Discharge Instructions Date of Service Aug 13, 2016 Dates of Hospitalization Aug 10, 2016 at 11:14 Discharge Diagnosis Discharge Diagnosis 1. Sepsis, resolved 2. Pyelonephritis, improved 3. Volume depletion, resolved 4. DM 2 5. JOSÉ MIGUEL, resolved Call your provider Fever or Chills Patient Instructions PCP in 1 week Follow-up with PCP in: 1 week Brando Rodriguez MD Aug 13, 2016 11:14
--- NOTE | 2016-08-13 11:41 | NUR ---
Evaluation completed/ready for discharge Please go to "Notes" then click on "Assessments and Notes" (bottom left corner of screen). Then select appropriate discipline tab on top of screen.
--- NOTE | 2016-08-13 11:51 | NUR ---
Discharge pt ordered for discharge, pt agreeable. discharge instructions and medication reviewed with patient. pt escorted out via wheelchair, and all belongings at about 1155
--- NOTE | 2016-08-13 12:03 | NUR ---
Social Work Note - Discharge SAFETY CONSULTANT met briefly with pt - pt's family also in the room. PT worked with pt and recommended home with no needs. Pt states she has good family support. She will follow up with PCP if she finds that she is getting weaker and wants outpt rehab. SAFETY CONSULTANT provided support - no needs identified. Plan: Home with family, no needs identified. JOSE Sosa
--- NOTE | 2016-08-15 16:06 | PCM.DC.MED ---
Discharge Summary Date of Service Aug 13, 2016 Dates of Hospitalization Date of Hospital Admission Aug 10, 2016 at 11:14 Date of Discharge: Aug 13, 2016 Providers: Admitting Physician: Brando Rodriguez MD Primary Care Physician: Larisa Arrieta MD Attending Physician: Brando Rodriguez MD Diagnosis at Time of Discharge Diagnosis at Time of Discharge 1. Sepsis, resolved 2. Pyelonephritis, improved 3. Volume depletion, resolved 4. DM 2 5. JOSÉ MIGUEL, resolved Consultations None Procedures XRay, CTs & MRIs Chest x-ray is unremarkable CT of abdomen reveals bilateral devin-renal fact stranding consistent with probable pyelonephritis. Mild bilateral hydronephrosis. Cardiac Echo Impression The left ventricle is normal in size, wall thickness, and systolic function without any focal wall motion abnormalities. The ejection fraction is estimated to be 60-65%. Assessment of diastolic parameters indicates a relaxation abnormality of the left ventricle, consistent with normal filling pressures. The right ventricle is normal in size, thickness and function. The right ventricular systolic pressure is estimated at 48 mmHg assuming a right atrial pressure of 15 mm Hg. The left atrial size is normal. Right atrial size is normal. Brief History This is a 71-year-old female with history of diabetes mellitus 2 and recurrent UTI. She presents having been ill for 5 days with polyuria and increased thirst and generalized progressive weakness. She has not had a bowel movement for 5 days. Her urine has been a little bit uncomfortable while urinating and more urgent. No flank pain. This morning she became more weak and had fevers and chills. She is brought to the ER and found to be profoundly hypotensive and initially did respond to about 3 L of saline but then had recurrent hypotension consistent with moderate to severe sepsis. She was given 6 L of crystalloid in the ED and started on norepinephrine. A PICC was placed. She denies nausea vomiting or chest pain. No recent diarrhea or blood per rectum. She does have some suprapubic tenderness. Hospital Course 1. Septic shock. POA. Resolved. She is now off of norepinephrine. She is on saline at 100. 2. Pyelonephritis, POA. Cultures are negative, urine culture 100,000 CFU's GNR. Continue current antibiotics. 3. DM 2. We will continue her Lantus at a slightly reduced dose of 30 every 12 hours. 4. Essential hypertension, POA. We will resume blood pressure medications today if needed. 5. AK I, POA. Resolved. Patient is a full resuscitation this is confirmed today. Her estimated length of stay is over tonight she is inpatient status. We will see if she could not even walk today. We will decide in one to discharge her. Hospital course. This patient is admitted with evidence of septic shock. She is several hypotensive. She required aggressive fluid resuscitation about 5 L of saline in the ED. She started norepinephrine through a right IJ which is placed in the emergency department. She did ultimately improve after receiving antibiotics. She cultures but a positive urine culture Escherichia coli which was pansensitive except to ampicillin. She was initially treated with Zosyn and then this is narrowed to ceftriaxone after cultures returned. She has a fair amount of her anorexia which did improve and she improved. The day of discharge she was able to walk in the with no nausea or other symptoms. She had good controlled diabetes while in the hospital and her initial evidence of AK I improved with fluid resuscitation and she normalized creatinine. Exam Vital Signs (Last) Date Time Temp Pulse Resp B/P Pulse Ox O2 Delivery O2 Flow Rate FiO2 08/13/16 10:12 60 08/13/16 08:16 20 156/74 94 Room Air 08/13/16 04:33 37.1 3.00 Exam Alert oriented in no acute distress. Lungs are clear to lab for Heart is regular without murmur. Abdomen soft. Extremities are free of edema. Pedal pulses. Skin is free of rash or lesions Test 08/10/16 08:25 08/10/16 10:10 08/10/16 11:00 08/11/16 04:00 Hemoglobin A1c 6.1% (4.8-5.6) Troponin T < 0.010ug/L (0.0-0.011) Lipase 22U/L (13-60) Urine Color Straw (YELLOW) Urine Appearance Hazy (CLEAR,HAZY) Urine pH 5.5 (5.0-8.0) Urine Specific [place] 1.010 (1.003-1.035) Urine Protein Tracemg/dL (NEG,TRACE) Urine Glucose (UA) Negativemg/dL (NEGATIVE) Urine Ketones Negativemg/dL (NEGATIVE) Urine Occult Blood Small (NEGATIVE) Urine Nitrite Negative (NEGATIVE) Urine Bilirubin Negative (NEGATIVE) Urine Urobilinogen Normalmg/dL (NORMAL) Urine Leukocyte Esterase Moderate (NEGATIVE) Urine RBC 0-2/hpf (0-2) Urine WBC >50/hpf (0-5) Urine Epithelial Cells Few/hpf (NONE-MOD) Urine Crystals None seen (NONE SEEN) Urine Bacteria Moderate/hpf (NONE-FEW) Urine Hyaline Casts None/lpf (NONE) Urine Granular Casts None seen (NONE SEEN) Urine Waxy Casts None seen (NONE SEEN) Urine Red Blood Cell Casts None seen (NONE SEEN) Urine White Blood Cell Casts None seen (NONE SEEN) Urine Mucus None seen (None Seen) Urine Trichomonas None seen (NONE SEEN) Urine Yeast None (NONE SEEN) Urinalysis Comment None Urine Culture Reflexed Indicated Lactic Acid Level 1.3mmol/L (0.4-2.0) Neutrophils (%) (Auto) 89.1% (40-74) Lymphocytes (%) (Auto) 6.2% (14-46) Monocytes (%) (Auto) 3.8% (4-12) Eosinophils (%) (Auto) 0.3% (0-5) Basophils (%) (Auto) 0.1% (0-3) Prothrombin Time 12.5sec (8.1-12.5) Prothromb Time International Ratio 1.16ratio Phosphorus Level 2.6mg/dL (2.5-4.9) Magnesium Level 2.0mg/dL (1.6-2.6) Procalcitonin 36.87ng/mL (0.00-0.08) Test 08/12/16 11:00 08/13/16 05:00 White Blood Count 10.7th/mm3 (3.8-10.1) Red Blood Count 3.37mil/mm3 (3.90-5.20) Hemoglobin 9.7g/dL (12.0-15.6) Hematocrit 29.6% (35.0-46.0) Mean Corpuscular Volume 87.8fL (81-100) Mean Corpuscular Hemoglobin 28.8pg (27.0-35.0) Mean Corpuscular Hemoglobin Concent 32.8% (32.0-37.0) Red Cell Distribution Width 13.2% (12.3-15.4) Platelet Count 222bil/L (150-400) Sodium Level 140mEq/L (134-144) Potassium Level 4.1mEq/L (3.5-5.2) Chloride Level 107mEq/L (97-108) Carbon Dioxide Level 21mmol/L (18-29) Blood Urea Nitrogen 15mg/dL (8-27) Creatinine 1.01mg/dL (0.57-1.00) Estimat Glomerular Filtration Rate 78mL/min (>59) Glucose Level 151mg/dL (60-99) Calcium Level 7.5mg/dL (8.5-10.1) Total Bilirubin 0.6mg/dL (0.0-1.2) Aspartate Amino Transf (AST/SGOT) 21U/L (0-50) Alanine Aminotransferase (ALT/SGPT) 16U/L (0-32) Alkaline Phosphatase 127U/L (25-165) Total Protein 5.1g/dL (6.4-8.4) Albumin 2.7g/dL (3.4-5.0) Prealbumin 7mg/dL (20-40) Microbiology Results Urine culture grew out Escherichia coli pansensitive except to ampicillin, blood cultures negative Discharge Medications Discharge Medications Anastrozole (Anastrozole) 1 Mg Tablet 1 MG PO DAILY (Reported) Aspirin (Aspirin) 325 Mg Tablet.dr 325 MG PO DAILY (Reported) Ciprofloxacin (Cipro) 500 Mg Tablet 500 MG PO BID Prescribed by: BRANDO RODRIGUEZ MD Gabapentin (Gabapentin) 100 Mg Capsule 300 MG PO BID (Reported) Insulin Aspart (NovoLOG U-100 Pen) 100 Unit/Ml Insuln.pen 30 UNIT SUBQ DAILY ( Reported) USE ACCORDING TO SLIDING SCALE Insulin Glargine (Lantus U100 Solostar Insulin Pen) 100 Unit/1 Ml Insuln.pen 45 UNIT SUBQ BID (Reported) use according to insulin protochol Lisinopril (Lisinopril) 20 Mg Tablet 20 MG PO AM (Reported) Lovastatin (Lovastatin) 20 Mg Tablet 20 MG PO DAILYWD (Reported) Metformin (Metformin) 500 Mg Tablet 500 MG PO BID (Reported) Followup Plan Disposition: Home, with family Patient Instructions PCP in 1 week Follow-up with PCP in: 1 week Time spent 40 minutes Brando Rodriguez MD Aug 15, 2016 16:06
== END 2016-08-13 11:55 | disposition home or self-care (01) | DRG 871 ==
LOC: EDBD 08:14 → SED 08:14 → PCC 11:14 → CCU 13:51 → PCC 08-11 16:25
PROVIDERS: ADMIT Hospitalist; ATTEND Hospitalist
DX: A41.9 Sepsis, unspecified organism (principal); R65.21 Severe sepsis with septic shock; N17.9 Acute kidney failure, unspecified; E87.2 Acidosis; N12 Tubulo-interstitial nephritis, not specified as acute or chronic; E11.8 Type 2 diabetes mellitus with unspecified complications; Z79.4 Long term (current) use of insulin; Z79.84 Long term (current) use of oral hypoglycemic drugs; I10 Essential (primary) hypertension; Z85.3 Personal history of malignant neoplasm of breast; K21.9 Gastro-esophageal reflux disease without esophagitis; Z87.440 Personal history of urinary (tract) infections; Z86.73 Personal history of transient ischemic attack (TIA), and cerebral infarction without residual deficits; Z79.82 Long term (current) use of aspirin; B96.20 Unspecified Escherichia coli [E. coli] as the cause of diseases classified elsewhere; Z16.11 Resistance to penicillins